=== PATIENT | male | born 1960 | race Caucasian/White ===

== ENCOUNTER 2022-03-31 17:01 | Emergency (ER) | payer BC ==
--- OUTSIDE RECORDS SUMMARY | 2022-03-31 17:03 | XMS REPORT | Continuity of Care Document ---
:[address] [facility] t Address [address] [place] [address] Care Team Providers Name Role Phone [employer] Employee, BHARTI Attending Clinician Unavailable Matthew Hassan Attending Clinician Unavailable Payers Payer Name Policy Type Policy Number Effective Date Expiration Date S ource Problems This patient has no known problems. Allergies, Adverse Reactions, Alerts Allergy Allergy Status Severity Reaction(s) Onset Inactive Treating Comm ents Source Name Type Date Date Clinician codeine DA Active MO Rash [facility] 00:00: St 00 Nabeel Durham Medications This patient has no known medications. Vital Signs Vital Name Observation Time Observation Value Comments Source HEIGHT 2018-01-03 14:24:00 185.42 cm WEIGHT 2018-01-03 14:24:00 86.14700 kg Procedures This patient has no known procedures. Encounters Start End Encounter Admission Attending Care Care Encounter Source Date/Time Date/Time Type Type Clinicians Facility Department ID 2020-09-30 Inpatient R LACI STLSJB STLSJB [id number] [facility] Employee, -[id number] Ramiro jernigan 2018-01-04 2018-01-04 Outpatient R MONROE Hassan STCHICHI [id number] 10:10:00 16:15:00 Matthew [id number] Ambrocio Copeland Results Test Description Test Time Test Comments Results Result [facility] e Comments [id number] SURGICAL 2018-01-05 PATHOLOGY, LEVEL 14:43:00 III -------- [address] [address] Laboratory Printed: 01/05/18 1440 [facility] DAEMPathology Page: 1 Patient: JP SORIA Birthdate: 1960 Age/Sex: 57/M Spec#: [id number]: Matthew Hassan MD Specimen Date: 01/04/18 Received Date: 01/04/18 Specimen: TONSILS, BARAK CLINICAL DIAGNOSIS none provided on requisition PATHOLOGIC DIAGNOSIS Right and left tonsils, bilateral tonsillectomy: - Tonsillar tissue with reactive lymphoid hyperplasia. Pathologist:Ronaldo Marcial MD Entered by:01/05/18 - 1429 LAB.YGP PROCEDURES: 40597/2 GROSS DESCRIPTION A. TONSILS, BILATERAL RIGHT TAGGED The specimen is received in 10% formalin, and is labeled with the patient's name and"tonsils, right tagged." The specimen consists of two tonsils, one of which is tagged witha suture. The tagged (right) tonsil measures 2.1 x 1.0 x 1.0 cm in greatest dimensions.The external surface has velvety mucosa. On sectioning, it has normal-appearing crypts andhomogeneous parenchyma throughout. No focal lesions are noted. It is marked with blackink. The left tonsil measures 2.2 x 1.3 x 1.1 cm in greatest dimensions. It has similarfeatures to the right. Lagging Machine Operator sections are submitted in one cassette (right marked with ink). Patient: JP SORIA Re01/04/18Loc: AMAURY MR#: [id number] CONTINUED ON NEXT PAGE Dis: Sta: DEP SDC -------- [address] [address] Laboratory Printed: 01/05/[address] [place] [address] DAEMPathology Page: 2 -------- Patient: JP SORIA [id number] (Continued) GROSS DESCRIPTION (Continued) Dictated by: ALLEN CAMACHO Entered by: 01/04/18 - 1519 LAB.Y[place]URA MICROSCOPIC DESCRIPTION A microscopic examination was performed to arrive at the diagnostic conclusion reported. Signed (Electronicall y Signed) Ronaldo Marcial MD 01/05/18 -------- Patient: JP SORIA Re01/04/18Loc: AMAURY MR#: [id number] END OF REPORT Dis: Sta: MADHURI DICKINSON
--- NOTE | 2022-03-31 18:24 | RAD REPORT ---
EXAM DESCRIPTION: CT - Stone Protocol - 03/31/2022 5:54 pm CLINICAL HISTORY: Flank pain. flank pain COMPARISON: No comparisons TECHNIQUE: Axial images were obtained without oral or IV contrast. Lack of contrast limits solid org an and vascular assessment. The [id number] spans the entirety of the system partially obscuring uppermost abdomen and lung bases. Coronal reformatted images were obtained and reviewed. All CT scans are performed using dose optimization technique as appropriate and may include automated exposure control or mA/KV adjustment according to patient size. FINDINGS: The lower lung mora are clear. Imaged portions of the liver and spleen show no suspicious findings on non-contrast imaging. The panc reas and adrenal glands are normal. No pathologic lymphadenopathy in the abdomen or pelvis. No urinary tract stones or obstructive uropathy. No bowel obstruction, free air, free fluid or abscess. Normal appendix noted. Sigmoid diverticulosis coli without diverticulitis. Moderate lower lumbar spondylosis. IMPRESSION: No urinary tract stones or obstructive uropathy.
[2022-03-31] MEDS ORDERED: FENTANYL CITR 100 MCG/2 ML ONE (18:59)
[2022-03-31] MEDS ORDERED: ONDANSETRON 4 MG/2 ML VIAL ONE (18:59)
[2022-03-31 19:46] LABS: Absolute Lymphocytes (CBC) 1.2 K/uL (0.7-4.9); Hematocrit 45.3 % (39.6-49.0); Lymphocytes % 11.3 % (15.3-44.8); MCV 90.2 fL (80-100); MPV 8.7 fL (7.6-11.3); RBC Red Blood Cell Count 5.03 M/uL (4.33-5.43)
[2022-03-31 20:40] LABS: Albumin 3.7 g/dL (3.4-5.0); Bilirubin Total 0.7 mg/dL (0.2-1.0); Protein, Total 6.9 g/dL (6.4-8.2)
[2022-03-31 20:41] LABS: Potassium 4.1 mmol/L (3.5-5.1)
[2022-03-31] MEDS ORDERED: DIAZEPAM 10 MG/2 ML INJ SYRINGE ONE (20:54)
[2022-03-31] MEDS ORDERED: KETOROLAC 30 MG/ML INJ ONE (20:54)
--- NOTE | 2022-03-31 21:26 | RAD REPORT ---
EXAM DESCRIPTION: CT - Angio Aorta For Dissection - 03/31/2022 9:10 pm CLINICAL HISTORY: Chest pain radiating to the back. flank pain COMPARISON: No comparisons TECHNIQUE: CT angiography of the aorta was performed with MIPs. All CT scans are performed using dose optimization technique as appropriate and may include automated exposure control or mA/KV adjustment according to patient size. FINDINGS: A left aortic arch is present with normal branching pattern of the great vessels.No acute aortic finding is seen such as aneurysm, penetrating ulcer or dissection. The celiac axis, SMA, GENIA and renal arteries are patent. No evidence of pulmonary embolism. The lungs are clear. The liver demonstrates no focal mass or biliary dilatation.Fatty liver is present.The spleen, pancrea s, adrenal glands and kidneys are within normal limits for arterial phase imaging. No bowel obstruction, free fluid or abscess.Mild sigmoid diverticulosis without diverticulitis. Rubia l appendix.No pathologic enlarged lymphadenopathy identified. Lumbar degenerative changes are present. IMPRESSION: No acute aortic finding is demonstrated.
--- NOTE | 2022-03-31 21:37 | ER ---
Nurse's Notes [facility] Name: Paul Kamara Age: 61 yrs Sex: Male : 1960 Arrival Date: 03/31/2022 Time: 17:16 Bed 10 Private MD: Diagnosis: Low back pain Presentation: 03/31 17:20 Chief complaint: Patient states: l lower back pain x 2-3 days, no injury noted and jh6 states feels like a sharp knife is in his back. Coronavirus screen: Vaccine status: Patient reports receiving the 2nd dose of the covid vaccine. Ebola Screen: Patient negative for fever greater than or equal to 101.5 degrees Fahrenheit, and additional compatible Ebola Virus Disease symptoms Patient denies exposure to infectious person. Patient denies travel to an Ebola-affected area in the 21 days before illness onset. Initial Sepsis Screen: Does the patient meet any 2 criteria? RR > 20 per min. Does the patient have a suspected source of infection? No. Patient's initial sepsis screen is negative. Risk Assessment: Do you want to hurt yourself or someone else? Patient reports no desire to harm self or others. Onset of symptoms was March 31, 2022. 17:20 Method Of Arrival: Ambulatory [facility] 17:20 Acuity: IGNACIO 3 jh6 Triage Assessment: 17:23 General: Appears uncomfortable, Behavior is calm, cooperative. Pain: Complains of pain jh6 in posterior aspect of right lateral abdomen Pain radiates to mid back area and left mid back. Historical: - Allergies: 17:23 Codeine; 6 - Home Meds: 17:23 None [Active]; jh6 - PSHx: 17:23 None; jh6 - Immunization history:: Client reports receiving the 2nd dose of the Covid vaccine. - Social history:: Smoking status: Patient denies any tobacco usage or history of. Screenin:18 Abuse screen: Denies threats or abuse. Nutritional screening: No deficits noted. bm7 Tuberculosis screening: No symptoms or risk factors identified. Fall Risk None identified. Assessment: 19:18 Reassessment: No changes from previously documented assessment. bm7 20:57 Pain: Complains of pain in left low back and left mid back and abdomen Pain currently vc1 is 10 out of 10 on a pain scale. Vital Signs: 17:20 BP 140 / 84; Pulse 78; Resp 17; Temp 96.1; Pulse Ox 100% ; Weight 90.72 kg; Height 6 [facility] ft. 1 in. (185.42 cm); Pain 10/10; 19:59 BP 136 / 82; Pulse 72; Resp 16; Pulse Ox 100% on R/A; bm7 21:07 BP 145 / 89; Pulse 79; Resp 16; Pulse Ox 100% ; Pain 8/10; ld1 21:30 BP 150 / 94; Pulse 76; Resp 18; Pulse Ox 100% on R/A; Pain 10/10; eh3 22:00 BP 145 / 87; Pulse 73; Resp 18; Pulse Ox 99% on R/A; Pain 10/10; eh3 17:20 Body Mass Index 26.39 (90.72 kg, 185.42 cm) 6 ED Course: 17:16 Patient arrived in ED. mr 17:23 Jacobo Whitaker PA is PHCP. [facility] 17:23 Carson Sutton MD is Attending Physician. [facility] 17:23 Triage completed. [facility] 17:23 Arm band placed on left wrist. [facility] 19:16 Patient has correct armband on for positive identification. 7 19:16 Inserted saline lock: 22 gauge in right antecubital area, using aseptic technique. bm7 Patient maintains SpO2 saturation greater than 95% on room air. 19:18 No provider procedures requiring assistance completed. bm7 19:59 Client placed on continuous cardiac and pulse oximetry monitoring. NIBP monitoring bm7 applied. Warm blanket given. 19:59 Initial lab(s) drawn, by id, sent to lab. bm7 20:33 PHCP role handed off by Jacobo Whitaker PA cp 20:33 Carson Marina PA is PHCP. cp 20:42 Monse Martino, RN is Primary Nurse. vc1 20:57 Monse Martino, RN is Primary Nurse. vc1 20:58 Jyoti Jones, XENIA is Primary Nurse. eh3 21:12 CT Aorta for Dissection In Process Unspecified. EDMS 22:48 IV discontinued, intact, bleeding controlled, No redness/swelling at site. Pressure eh3 dressing applied. Administered Medications: 19:06 Drug: fentaNYL (PF) 50 mcg Route: IVP; Site: right antecubital; bm7 21:44 Follow up: Response: No change in condition eh3 19:06 Drug: Zofran (Ondansetron) 4 mg Route: IVP; Site: right antecubital; bm7 21:44 Follow up: Response: No adverse reaction eh3 20:57 Drug: Valium (diazepam) 5 mg Route: IVP; Site: right wrist; vc1 21:50 Follow up: Response: No change in condition eh3 20:57 Drug: Ketorolac 30 mg Route: IVP; Site: right wrist; vc1 21:51 Follow up: Response: No change in condition eh3 22:00 Drug: Lidoderm Patch 5 % (700 mg/patch) 1 patches Route: Topical; Site: affected area; eh3 22:48 Follow up: Response: Pain is decreased eh3 22:00 Drug: morphine 4 mg Route: IVP; Infused Over: 4 mins; Site: right wrist; eh3 22:48 Follow up: Response: Pain is decreased [facility] Medication: 19:18 VIS not applicable for this client. 7 Outcome: 21:36 Discharge ordered by . cp 22:48 Discharged to home ambulatory, with family. 3 22:48 Condition: stable 22:48 Discharge instructions given to patient, significant other, Instructed on discharge instructions, follow up and referral plans. medication usage, Demonstrated understanding of instructions, follow-up care, medications, Prescriptions given X 1, 2, 3. 22:49 Patient left the ED. 3 Signatures: Dispatcher [employer] EDMS Jacobo Whitaker PA PA jmm Rivera, Mary Carson Marina PA PA cp McCarthy, Brittany, RN RN bm7 Theresa May RN RN Erin Davis RN RN 6 Monse Martino RN RN vc1 Jyoti Jones RN RN 3 Corrections: (The following items were deleted from the chart) 17:23 17:23 Allergies: No Known Allergies; Apolinar [facility]
--- NOTE | 2022-03-31 21:38 | EDPHYS ---
Physician Documentation [facility] Name: Paul Kamara Age: 61 yrs Sex: Male : 1960 Arrival Date: 03/31/2022 Time: 17:16 Bed 10 Private MD: PETER Physician Carson Sutton HPI: 03/31 17:23 This 61 yrs old Male presents to ER via Ambulatory with complaints of Low Back Pain. [facility] 17:23 The patient presents with pain that is acute. The symptoms are located in the low back. jmm Location: left low back. Onset: The symptoms/episode began/occurred gradually, 3 day(s) ago. Modifying factors: The patient symptoms are alleviated by nothing, the patient symptoms are aggravated by any movement. Associated signs and symptoms: Pertinent negatives: abdominal pain, chest pain, vomiting. The patient has not experienced similar symptoms in the past. Historical: - Allergies: 17:23 Codeine; [facility] - Home Meds: 17:23 None [Active]; [facility] - PSHx: 17:23 None; [facility] - Immunization history:: Client reports receiving the 2nd dose of the Covid vaccine. - Social history:: Smoking status: Patient denies any tobacco usage or history of. ROS: 17:23 Constitutional: Negative for fever, chills, and weight loss, Cardiovascular: Negative jm for chest pain, palpitations, and edema, Respiratory: Negative for shortness of breath, cough, wheezing, and pleuritic chest pain. 17:23 Back: Positive for pain with movement. 17:23 All other systems are negative. Exam: 17:23 Constitutional: This is a well developed, well nourished patient who is awake, alert, jmm and in no acute distress. Head/Face: atraumatic. Eyes: EOMI, no conjunctival erythema appreciated ENT: Moist Mucus Membranes Neck: Trachea midline, Supple Chest/axilla: Normal chest wall appearance and motion. Cardiovascular: Regular rate and rhythm. No edema appreciated Respiratory: Normal respirations, no respiratory distress appreciated Abdomen/GI: Non distended 17:23 Back: pain, that is moderate, of the left low back. 17:23 Musculoskeletal/extremity: ROM: intact in all extremities. 17:23 Skin: Appearance: Color: normal in color. 17:23 Neuro: Orientation: is normal, Mentation: is normal, Memory: is normal. 17:23 Psych: Behavior/mood is pleasant, cooperative. Vital Signs: 17:20 BP 140 / 84; Pulse 78; Resp 17; Temp 96.1; Pulse Ox 100% ; Weight 90.72 kg; Height 6 [facility] ft. 1 in. (185.42 cm); Pain 10/10; 19:59 BP 136 / 82; Pulse 72; Resp 16; Pulse Ox 100% on R/A; bm7 21:07 BP 145 / 89; Pulse 79; Resp 16; Pulse Ox 100% ; Pain 8/10; ld1 21:30 BP 150 / 94; Pulse 76; Resp 18; Pulse Ox 100% on R/A; Pain 10/10; eh3 22:00 BP 145 / 87; Pulse 73; Resp 18; Pulse Ox 99% on R/A; Pain 10/10; eh3 17:20 Body Mass Index 26.39 (90.72 kg, 185.42 cm) [facility] MDM: 17:26 Patient medically screened. [facility] 20:19 Data reviewed: vital signs, nurses notes. [facility] 03/31 17:23 Order name: CBC with Diff [facility] 03/31 17:23 Order name: CMP; Complete Time: 21:29 [facility] 03/31 21:29 Interpretation: Reviewed. 03/31 17:23 Order name: Lipase [facility] 03/31 17:24 Order name: CT Stone Protocol [facility] 03/31 18:25 Order name: CT; Complete Time: 18:34 [facility] 03/31 19:48 Order name: CBC with Automated Diff; Complete Time: 19:48 [facility] 03/31 21:29 Interpretation: WBC 11.10; BOBBY% 80.3; LYM% 11.3; NEUT A 8.9; Reviewed. 03/31 17:23 Order name: IV Saline Lock; Complete Time: 19:06 [facility] 03/31 18:34 Order name: CT Aorta for Dissection; Complete Time: 21:28 [facility] 03/31 17:23 Order name: Labs collected and sent; Complete Time: 19:59 [facility] Administered Medications: 19:06 Drug: fentaNYL (PF) 50 mcg Route: IVP; Site: right antecubital; 7 21:44 Follow up: Response: No change in condition [facility] 19:06 Drug: Zofran (Ondansetron) 4 mg Route: IVP; Site: right antecubital; bm7 21:44 Follow up: Response: No adverse reaction eh3 20:57 Drug: Valium (diazepam) 5 mg Route: IVP; Site: right wrist; vc1 21:50 Follow up: Response: No change in condition eh3 20:57 Drug: Ketorolac 30 mg Route: IVP; Site: right wrist; vc1 21:51 Follow up: Response: No change in condition eh3 22:00 Drug: Lidoderm Patch 5 % (700 mg/patch) 1 patches Route: Topical; Site: affected area; eh3 22:48 Follow up: Response: Pain is decreased eh3 22:00 Drug: morphine 4 mg Route: IVP; Infused Over: 4 mins; Site: right wrist; eh3 22:48 Follow up: Response: Pain is decreased eh3 Disposition Summary: 03/31/22 21:36 Discharge Ordered Location: Home cp Problem: new cp Symptoms: have improved cp Condition: Stable cp Diagnosis - Low back pain cp Followup: cp - With: Private Physician - When: 2 - 3 days - Reason: Recheck today's complaints Discharge Instructions: - Discharge Summary Sheet cp - Acute Back Pain, Adult cp - Heat Therapy cp - Back Exercises cp Forms: - Medication Reconciliation Form cp - Thank You Letter cp - Antibiotic Education cp - Prescription Opioid Use cp Prescriptions: - Diclofenac Sodium 75 mg Oral tablet,delayed release (DR/EC) - take 1 tablet by ORAL route 2 times per day; 20 tablet; Refills: 0, Product cp Selection Permitted - Medrol (Nilesh) 4 mg Oral Tablets, Dose Pack - take 1 tablet by ORAL route as directed - follow package instructions; 1 cp packet; Refills: 0, Product Selection Permitted - orphenadrine citrate 100 mg Oral Tablet Sustained Release - take 1 tablet by ORAL route 2 times per day As needed; 20 tablet; Refills: 0, cp Product Selection Permitted Signatures: Dispatcher [employer] Jacobo Mckeon PA PA jmm Page, Corey, PA PA cp McCarthy, Brittany RN RN bm7 Erin Jang RN RN jh6 Monse Martino RN RN vc1 Jyoti Jones RN RN eh3 Corrections: (The following items were deleted from the chart) 17:23 17:23 Allergies: No Known Allergies; jh6 jh6 21:29 21:29 WBC 11.10; Reviewed. cp
[2022-03-31] MEDS ORDERED: MORPHINE 4 MG/ML SYR ONE (22:02)
[2022-03-31] MEDS ORDERED: LIDOCAINE 4% PATCH ONE (22:05)
[2022-04-02 15:31] VITALS: TEMP 96.1; O2SAT 100
[2022-04-02 15:45] VITALS: BP 150/94
== END 2022-03-31 22:49 | disposition home or self-care (01) ==
LOC: ER 17:01
DX: M54.50 Low back pain, unspecified (principal); Z88.5 Allergy status to narcotic agent
CPT/HCPCS: 85025; 36415; 83690; 80053; 76377; 71275; 74175; 74176; 99284; Q9967; J3360; J3010; J2001; J2405